=== PATIENT | female | born 1945 | race Two or more races ===

== ENCOUNTER 2020-01-13 10:06 | Emergency (ER) | payer BC, MEDICARE ==
[~2020-01-13] VITALS: Ht 157.5 cm; Wt 68.0 kg
[~2020-01-13 10:06] MED LIST: OMEP20CA14; SEE MED SHEET
[2020-01-13 10:09] VITALS: BP 192/70
[2020-01-13 10:44] LABS: BASOPHILS % 0.9 % (0.0-2.0); EOSINOPHILS % 3.1 % (0.0-5.0); HEMATOCRIT. 36.3 % (36.0-48.0); HEMOGLOBIN. 12.5 g/dL (12.0-16.0); LYMPHOCYTES % 44.5 % (20.0-50.0); MEAN CORPUSCULAR VOLUME 90.3 fL (81.0-99.0); MEAN PLATELET VOLUME 7.5 fl (7.4-10.4); MONOCYTES % 6.9 % (2.0-8.0); NEUTROPHILS % 44.6 % (40.0-76.0); PLATELET 226 x1000/uL (130-400); RED BLOOD CELL COUNT 4.02 mill/uL (4.2-5.4); RED CELL DISTRIBUTION WIDTH 13.2 % (11.6-14.6)
[2020-01-13] MEDS ORDERED: HYDROCODONE/ACETAMINOPHEN 5/325MG TABLET PO ONE (10:45)
[2020-01-13] MEDS ORDERED: ONDANSETRON 4MG ODT PO ONE (10:45)
[2020-01-13 10:50] LABS: CHLORIDE 107 mEq/L (98-107)
[2020-01-13 10:59] LABS: PARTIAL THROMBOPLASTIN TIME 29.6 sec (23.4-31.0); PROTHROMBIN TIME 10.5 sec (9.6-11.0)
== END 2020-01-13 14:20 | disposition home or self-care (01) ==
LOC: ER 10:41 → CANBEDREQ 14:46
DX: S00.83XA Contusion of other part of head, initial encounter (principal); S16.1XXA Strain of muscle, fascia and tendon at neck level, initial encounter; R07.89 Other chest pain; W01.0XXA Fall on same level from slipping, tripping and stumbling without subsequent striking against object, initial encounter; Y93.89 Activity, other specified; Y92.89 Other specified places as the place of occurrence of the external cause; Y99.8 Other external cause status; Z88.2 Allergy status to sulfonamides
CPT/HCPCS: 36415; 70450; 70486; 71045; 72100; 72125; 73502; 73560; 73590; 80053; 83690; 83880; 84484; 85025; 85610; 85730; 93005; 99285; Q0162